=== PATIENT | male | born 1995 | race Caucasian/White ===

== ENCOUNTER 2016-09-07 13:28 | Emergency (ER) | payer SELFPAY ==
--- NOTE | 2016-09-07 13:36 | ER Document Report ---
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 He denies sx. Pt reports unprotected sex over new years. Denies pmh of std. TRAVEL OUTSIDE OF THE [place] IN LAST 30 DAYS: No - Related Data Allergies/Adverse Reactions: No Known Allergies Allergy (Verified 09/07/16 13:32) Past Medical History - Immunizations Hx Diphtheria, Pertussis, Tetanus Vaccination: No
--- NOTE | 2016-09-07 14:44 | ER Document Report ---
ED General - General Chief Complaint: STD Exposure Stated Complaint: STD CHECK Mode of Arrival: Ambulatory Notes: Patient was referred here from the plasma center and told that his blood tests show he might have syphilis. Patient says he gives plasma about 2 times a week and periodically they check him for diseases and this is the first time they've called him about something they found. Patient is totally completely asymptomatic. Has no pains, no rashes, no lymphadenopathy, no discharges, no fevers, no symptoms at all. He has a phone number for the plasma center [phone] that I tried to call to find out what the patient was referring to, but there was no answer, until after about 10 readings, it sounded as if the phone connected to a fax machine. TRAVEL OUTSIDE OF THE [place] IN LAST 30 DAYS: No - Related Data Allergies/Adverse Reactions: No Known Allergies Allergy (Verified 09/07/16 13:32) Past Medical History - General Information source: Patient - Social History Smoking Status: Current Every Day Smoker Chew tobacco use (# tins/day): No Frequency of alcohol use: None Drug Abuse: None Family History: Reviewed & Not Pertinent Patient has suicidal ideation: No Patient has homicidal ideation: No Surgical Hx: Negative - Immunizations Hx Diphtheria, Pertussis, Tetanus Vaccination: No Review of Systems - Review of Systems Notes: REVIEW OF SYSTEMS: CONSTITUTIONAL : Denies fever. EENT: Denies eye, ear, nose or mouth or throat pain or other symptoms. CARDIOVASCULAR: Denies chest pain. RESPIRATORY: Denies cough, chest congestion, or shortness of breath. GASTROINTESTINAL: Denies abdominal pain or nausea, vomiting, or diarrhea. GENITOURINARY: Denies difficulty or painful urinating, urinary frequency, blood in urine. MUSCULOSKELETAL: Denies back or neck pain. Denies joint pain or swelling. SKIN: Denies rash or skin lesions. NEUROLOGICAL: Denies LOC or altered mental status. Denies headache. Denies sensory loss or motor deficits. PSYCHIATRIC: Denies anxiety or stress. Denies depression. ALL OTHER SYSTEMS REVIEWED AND NEGATIVE. Physical Exam - Vital signs Vitals: Temp Pulse Resp BP Pulse Ox 98.2 F 95 17 138/68 H 99 09/07/16 13:32 09/07/16 13:32 09/07/16 13:32 09/07/16 13:32 09/07/16 13:32 Interpretation: Normal - Notes Notes: PHYSICAL EXAMINATION: GENERAL: Well-appearing, in no acute distress. HEAD: Atraumatic, normocephalic. EXTREMITIES: Normal range of motion without pain. No joint swelling or pain. SKIN: Warm, dry, no rashes. Course - Re-evaluation Re-evalutation: 09/07/16 16:51 Not sure what lab results that [facility] may be referring to since we can't get a hold of them for information. I told the patient that I could repeat some of the usual tests that we do for STDs if he would like. He agreed to that approach. A dirty urine is being sent for chlamydia and GC and I ordered an RPR for syphilis. He is going to call me this evening for the results of the dirty urine and I've given him a number to contact me on Sunday so I can get his results for his RPR which is a send out. - Vital Signs Vital signs: Temp Pulse Resp BP Pulse Ox 98.4 F 92 17 118/66 99 09/07/16 14:52 09/07/16 14:52 09/07/16 13:33 09/07/16 14:52 09/07/16 14:52 Discharge - Discharge Clinical Impression: STD Check Condition: Stable Disposition: HOME, SELF-CARE Additional Instructions: STD check You have provided us with a urine specimen and we will check for chlamydia and gonorrhea on that specimen. The results for these tests will be available in about 3 hours. You can call me at [phone] anytime after 6 PM today and I can give you those results. In addition, a blood test has been ordered to check for syphilis. The results for the blood test will take a couple of days to get the results. I have provided you with my home phone number . Call me around noon or 1 :00 p.m. on Sunday and try to obtain the results of that test for you.
[2016-09-07 14:53] VITALS: BP 118/66
[2016-09-07 16:25] LABS: CHLAM PCR NOT DETECTED (NOT DETECT)
== END 2016-09-07 14:56 | disposition home or self-care (01) ==
LOC: ER 13:28
DX: Z20.2 Contact with and (suspected) exposure to infections with a predominantly sexual mode of transmission (principal); F17.210 Nicotine dependence, cigarettes, uncomplicated
CPT/HCPCS: 36415; 86592; 87491; 87591; 99283